=== PATIENT | male | born 1965 | race Caucasian/White ===

== ENCOUNTER 2017-09-03 07:56 | Observation (INO) | payer BC ==
[~2017-09-03 07:56] MED LIST: EPHEDrine SULFATE 50 MG/5 ML SYG; GLYCOPYRROLATE 0.4 MG INJ
[2017-09-03] MEDS ORDERED: ROPIVACAINE 0.5 % 30 ML VIAL ×2 (10:42→13:17)
[2017-09-03] MEDS ORDERED: MIDAZOLAM 1 MG/ML 2 ML INJ (10:42)
[2017-09-03] MEDS ORDERED: THROMBIN 5000 UNIT VIAL (11:36)
[2017-09-03] MEDS ORDERED: NEOMYC/POLYMYX/BACIT 30 GM OINT ×2 (11:37→13:18)
[2017-09-03] MEDS ORDERED: CA CHLORIDE 10% 10 ML SYRINGE (11:37)
[2017-09-03] MEDS ORDERED: ROCURONIUM 50 MG INJ (11:58)
[2017-09-03] MEDS ORDERED: PROPOFOL 20 ML ×2 (11:58→12:55)
[2017-09-03] MEDS ORDERED: LIDOCAINE 2% (SDV) 5 ML INJ (11:58)
[2017-09-03] MEDS ORDERED: SUCCINYLCHOLINE CHLORIDE 100 MG/5 ML SYG IV (11:58)
[2017-09-03] MEDS ORDERED: FAMOTIDINE 20 MG INJ (12:07)
[2017-09-03] MEDS ORDERED: CEFAZOLIN 1 GM INJ (12:07)
[2017-09-03] MEDS ORDERED: DEXAMETHASONE 4 MG/ML 1 ML INJ (12:07)
[2017-09-03] MEDS ORDERED: ONDANSETRON 4 MG INJ (12:07)
[2017-09-03] MEDS ORDERED: THROMBIN(HUM PLAS)/FIBRINOG/CA 5 ML VIAL TOP (12:39)
[2017-09-03] MEDS: HEPARIN 1000 UNITS/ML 10 ML INJ (12:45)
[2017-09-03] MEDS: POLYMYXIN/BACITRACIN 1L IRRIG (12:46)
[2017-09-03] MEDS ORDERED: SUGAMMADEX SODIUM 200 MG/2 ML VIAL IV ×2 (13:26→13:33)
[2017-09-03] MEDS ORDERED: PROCHLORPERAZINE 10 MG INJ IV (13:30)
[2017-09-03] MEDS ORDERED: DIPHENHYDRAMINE 50 MG INJ IV (13:30)
[2017-09-03] MEDS ORDERED: ONDANSETRON 4 MG INJ IV ×2 (13:30→22:30)
[2017-09-03] MEDS ORDERED: OXYCODONE/ACETAMINOPHEN (5/325) TAB PO ×2 (13:30)
[2017-09-03] MEDS ORDERED: HYDROmorphONE (0.2 MG/ML) 10ML SYG IV ×2 (13:30)
[2017-09-03] MEDS ORDERED: FENTAnyl 50 MCG/ML VIAL IV ×3 (13:30)
[2017-09-03] MEDS ORDERED: ROPIVACAINE 0.2% 20 ML VIAL ×2 (13:38→13:39)
[2017-09-03] MEDS ORDERED: morphine 10 MG INJ IV (14:00)
[2017-09-03] MEDS: MEPERIDINE 25 MG INJ IV (14:31)
[2017-09-03] MEDS: HYDROmorphONE (0.2 MG/ML) 10ML SYG IV ×2 (15:22→16:28)
[2017-09-03] MEDS ORDERED: NACL 0.9% 3 ML SYG IV (18:00)
[2017-09-03] MEDS: ONDANSETRON 4 MG TAB PO (18:33)
[2017-09-03] MEDS: morphine 2 MG INJ IV (18:34)
[2017-09-03] MEDS: MONTELUKAST 10 MG TAB PO (18:34)
[2017-09-03] MEDS: PREGABALIN 75 MG CAP GTB ×2 (20:34→20:41)
[2017-09-03] MEDS: HYDROCODONE/APAP (10/325) TAB PO (20:35)
[2017-09-03] MEDS: FAMOTIDINE 20 MG TAB PO (20:35)
[2017-09-03] MEDS: HEPARIN 5,000 UNIT/0.5 ML VIAL SC (20:37)
[2017-09-03] MEDS ORDERED: DIPHENHYDRAMINE 25 MG CAP PO (22:30)
[2017-09-03] MEDS ORDERED: CEFAZOLIN 1 GM INJ IV (22:30)
[2017-09-03] MEDS: ZOLPIDEM 5 MG TAB PO (23:22)
[2017-09-04] MEDS: CEFAZOLIN 1 GM/50 ML (PMX) 50 ML IVPB ×3 (01:19→14:33)
[2017-09-04] MEDS: PREGABALIN 75 MG CAP GTB (08:50)
[2017-09-04] MEDS: PAROXETINE 20 MG TAB PO (08:50)
[2017-09-04] MEDS: FAMOTIDINE 20 MG TAB PO (08:50)
[2017-09-04] MEDS: HEPARIN 5,000 UNIT/0.5 ML VIAL SC (08:53)
[2017-09-04] MEDS: HYDROCODONE/APAP (10/325) TAB PO ×2 (09:04→14:34)
[2017-09-04] MEDS: ALBUTEROL/IPRATROPIUM (NEB) 3 ML AMP HHN (09:23)
[2017-09-04 11:42] LABS: ADD MAN DIFF? NO
[2017-09-04 11:47] LABS: WHITE BLOOD COUNT 10.2 10^3/ul (4.8-10.8)
[2017-09-04 11:47] LABS: BASOPHIL # 0.1 10^3/ul (0.0-0.1); BASOPHILS % 0.6 % (0.0-2.0); EOSINOPHILS # 0.2 10^3/ul (0.0-0.5); EOSINOPHILS % 1.6 % (0.0-7.0); HEMATOCRIT 39.2 % (42.0-52.0); HEMOGLOBIN 13.2 g/dl (14.0-18.0); LYMPHOCYTES # 2.4 10^3/ul (0.8-2.9); LYMPHOCYTES % 23.9 % (15.0-51.0); MEAN CORPUSCULAR HEMOGLOBIN 30.9 pg (29.0-33.0); MEAN CORPUSCULAR HGB CONC 33.7 g/dl (32.0-37.0); MEAN CORPUSCULAR VOLUME 91.8 fl (82.0-101.0); MEAN PLATELET VOLUME 12.6 fl (7.4-10.4); MONOCYTES % 10.1 % (0.0-11.0); NEUTROPHIL # 6.5 10^3/ul (1.6-7.5); NEUTROPHILS % 63.6 % (39.0-77.0); PLATELET COUNT 194 10^3/UL (140-415); RED BLOOD COUNT 4.27 10^6/ul (4.70-6.10); RED CELL DISTRIBUTION WIDTH 13.6 % (11.5-14.5)
[2017-09-04 12:10] LABS: ALANINE AMINOTRANSFERASE 29 IU/L (13-69); ALBUMIN 3.4 g/dl (3.3-4.9); ALBUMIN/GLOBULIN RATIO 1.25; ALKALINE PHOSPHATASE 56 IU/L (42-121); ANION GAP 11 (8-16); ASPARTATE AMINO TRANSFERASE 19 IU/L (15-46); BILIRUBIN,INDIRECT 0.2 mg/dl (0-1.1); BILIRUBIN,TOTAL 0.2 mg/dl (0.2-1.3); BLOOD UREA NITROGEN 11 mg/dl (7-20); CALCIUM 8.9 mg/dl (8.4-10.2); CARBON DIOXIDE 30 mmol/L (21-31); CHLORIDE 107 mmol/L (97-110); GLUCOSE 104 mg/dl (70-220); POTASSIUM 3.4 mmol/L (3.5-5.1); SODIUM 145 mmol/L (135-144); TOTAL PROTEIN 6.1 g/dl (6.1-8.1)
== END 2017-09-04 18:15 | disposition home or self-care (01) ==
LOC: SDS 07:56 → REC 16:00 → MS1 17:00
DX: M93.271 Osteochondritis dissecans, right ankle and joints of right foot (principal); Z91.041 Radiographic dye allergy status; J45.909 Unspecified asthma, uncomplicated; J45.40 Moderate persistent asthma, uncomplicated; J30.9 Allergic rhinitis, unspecified; F41.9 Anxiety disorder, unspecified
CPT/HCPCS: 28288; 80053; 82306; 84443; 85025; 94664; 97116; 97162; 97530